=== PATIENT | female | born 1970 | race Hispanic/Latino ===

== ENCOUNTER 2017-12-03 18:27 | Emergency (ER) | payer OTHER ==
[~2017-12-03] VITALS: Ht 157.5 cm; Wt 63.5 kg
[2017-12-03] MEDS ORDERED: FLUCONAZOLE100 MG PO (19:28)
[2017-12-03] MEDS ORDERED: IBUPROFEN 400 MG TAB PO ONE (19:30)
== END 2017-12-03 19:57 | disposition home or self-care (01) ==
LOC: FSED 18:27
DX: N30.01 Acute cystitis with hematuria (principal); N39.0 Urinary tract infection, site not specified; R30.0 Dysuria
CPT/HCPCS: 87086; 87186; 99282

== ENCOUNTER 2022-01-24 19:29 | Emergency (ER) | payer OTHER ==
[~2022-01-24] VITALS: Ht 157.5 cm; Wt 63.5 kg
[~2022-01-24 19:29] MED LIST: FLUCONAZOLE100 MG PO
[2022-01-24] MEDS ORDERED: SODIUM CHLORIDE 0.9% 1000ML 1,000 ML IV ONE (20:00)
[2022-01-24] MEDS ORDERED: CEFTRIAXONE 1 GM in SODIUM CHLORIDE 0.9% 50ML 50 ML IV ONE (20:07)
[2022-01-24] MEDS ORDERED: ACETAMINOPHEN 325 MG TAB PO ONE (20:08)
[2022-01-24] MEDS ORDERED: ACETAMINOPHEN 325 MG TAB ONE (20:19)
[2022-01-24] MEDS ORDERED: CEFTRIAXONE 1 GM VIAL ONE (20:19)
[2022-01-24 20:29] LABS: BASOPHILS % 0.4 % (0.0-1.0); EOSINOPHILS % 0.6 % (0.0-6.0); HEMATOCRIT 41.8 % (34.2-44.1); HEMOGLOBIN 13.6 g/dL (12.0-16.0); LYMPHOCYTES # (AUTO) 1.8 (1.0-3.2); LYMPHOCYTES % 24.3 % (18.0-39.1); MEAN CORPUSCULAR HEMOGLOBIN 30.2 pg (28-32); MEAN CORPUSCULAR HGB CONC 32.5 g/dL (31-35); MEAN CORPUSCULAR VOLUME 92.7 fL (81-99); MONOCYTES # (AUTO) 0.9 (0.2-0.8); MONOCYTES % 12.1 % (4.4-11.3); NEUTROPHILS # (AUTO) 4.5 (2.1-6.9); NEUTROPHILS % 62.3 % (38.7-80.0); PLATELET COUNT 339 x10e3/uL (140-360); RED BLOOD COUNT 4.51 x10e6/uL (3.6-5.1); RED CELL DISTRIBUTION WIDTH 13.5 % (11.7-14.4)
[2022-01-24 20:35] LABS: CLARITY,URINE HAZY (CLEAR); COLOR,URINE YELLOW (YELLOW); KETONES,URINE 1+ (NEGATIVE); LEUKOCYTE ESTERASE ,URINE MODERATE (NEGATIVE); NITRITE,URINE NEGATIVE (NEGATIVE); PROTEIN,URINE DIPSTICK NEGATIVE (NEGATIVE); URINE UROBILINOGEN 0.2 mg/dL (0.2 - 1)
[2022-01-24 20:42] LABS: BACTERIA,URINE MODERATE /HPF; RBC,URINE 0-5 /HPF (0-5); WBC,URINE (MAN) 21-50 /HPF (0-5)
[2022-01-24 20:45] LABS: ANION GAP 15.5 mmol/L (8-16); CALCIUM 9.9 mg/dL (8.4-10.2); CREATININE, SERUM 0.75 mg/dL (0.57-1.11); POTASSIUM 4.5 mmol/L (3.5-5.1)
[2022-01-24] MEDS ORDERED: KETOROLAC TROMETHAMINE 30 MG/ML VIAL IV STA (21:20)
[2022-01-24] MEDS ORDERED: KETOROLAC TROMETHAMINE 30 MG/ML VIAL ONE (21:34)
[2022-01-24 21:50] VITALS: BP 124/82
[2022-01-30] MEDS ORDERED: ULTRAM 50MG50 MG PO (18:47)
[2022-01-30] MEDS ORDERED: CIPRO500 MG PO (18:49)
[2022-01-30] MEDS ORDERED: LEVOFLOXACIN250 MG PO (19:02)
== END 2022-01-24 21:27 | disposition home or self-care (01) ==
LOC: ER 19:33
DX: R50.9 Fever, unspecified (principal); N39.0 Urinary tract infection, site not specified; R10.30 Lower abdominal pain, unspecified; M54.50 Low back pain, unspecified; Z20.822 Contact with and (suspected) exposure to COVID-19; R94.31 Abnormal electrocardiogram [ECG] [EKG]
CPT/HCPCS: 36415; 80053; 81001; 83605; 85025; 87040; 87086; 87186; 93005; 99283; J0696; J1885; J7030; U0002